=== PATIENT | female | born 1995 | race Caucasian/White ===

== ENCOUNTER → 2021-05-30 | Outpatient (CLI) | payer OTHER | END | disposition home or self-care (01) | LOC: LABWHC1 09:08 | PROVIDERS: ATTEND Physician Assistant Medical | DX: O20.0 Threatened abortion (principal); Z3A.00 Weeks of gestation of pregnancy not specified | CPT/HCPCS: 36415; 84702 ==

== ENCOUNTER → 2021-06-06 | Outpatient (CLI) | payer OTHER | END | disposition home or self-care (01) | LOC: LABWHC1 09:26 | PROVIDERS: ATTEND Obstetrics & Gynecology | DX: O03.9 Complete or unspecified spontaneous abortion without complication (principal) | CPT/HCPCS: 36415; 84702 ==

== ENCOUNTER 2023-04-30 06:00 | Inpatient (IN) | payer OTHER ==
[2023-04-30] MEDS ORDERED: miSOPROStoL 200 MCG TAB PO PRN (06:13)
[2023-04-30] MEDS ORDERED: LIDOCAINE 0.5% (PF) 5 MG/ML (50 ML SDV) SQ PRN (06:13)
[2023-04-30] MEDS ORDERED: TRANEXAMIC 1,000 MG/100ML-NACL 1,000 MG in EMPTY BAG 1 BAG IV PRN (06:13)
[2023-04-30] MEDS ORDERED: CARBOPROST TROMETHAMINE 250 MCG/ML 1 ML AMP IM PRN (06:13)
[2023-04-30] MEDS ORDERED: OXYTOCIN 10 UNIT/ML 1 ML VIAL IM PRN (06:13)
[2023-04-30] MEDS ORDERED: TERBUTALINE 1 MG/ML VIAL SQ PRN (06:13)
[2023-04-30] MEDS: LACTATED RINGERS 1,000 ML IV SCH (06:34)
[2023-04-30] MEDS: OXYTOCIN 30 UNITS/500 ML NS 30 UNIT in SALINE 1 500ML.BAG IV SCH (06:34)
[2023-04-30 06:45] LABS: Basophils % (A) 0 %; Eosinophils # (A) 0.1 k/uL (0-0.7); Eosinophils % (A) 1 %; HCT 32.8 % (34.0-46.0); HGB 11.2 gm/dL (11.4-16.0); Lymphocytes # (A) 2.2 k/uL (1.0-4.8); Lymphocytes % (A) 17 %; MCH 32.6 pg (25.0-35.0); MCHC 34.3 g/dL (31.0-37.0); Mean Platelet Volume 8.4; Monocytes # (A) 0.6 k/uL (0-1.0); Monocytes % (A) 5 %; Neutrophils # (A) 10.1 k/uL (1.3-7.7); Neutrophils % (A) 76 %; Platelet Count 199 k/uL (150-450); RBC 3.45 m/uL (3.80-5.40); RDW 12.4 % (11.5-15.5); WBC 13.3 k/uL (3.8-10.6)
--- NOTE | 2023-04-30 10:16 | P.HPOB ---
History of Present Illness H&P Date: 04/30/23 Chief Complaint: IUP at 39 weeks This is a 28-year-old gravida4 para 2011, EDC of 05/05 based on last menstrual period that presents to labor and delivery for induction of labor, secondary to increasing maternal discomfort. Patient has been receiving routine with myself which has been essentially uncomplicated. This morning patient notes good movement states she was cramping through the night but denied loss of fluid or vaginal bleeding. On blood work this patient has a blood type of a positive, rubella status immune, RPR is nonreactive, hepatitis B surface and is negative, HIV is negative, group beta strep culture is negative. OB history #1, 10/11/2010, 38 weeks, 7 pounds 8 ounces normal spontaneous vaginal delivery #2 10/12 2017, 40 weeks, 7 pounds 9 ounces, normal spontaneous vaginal delivery. # 3 05/19/2021 [facility] Review of Systems Constitutional: Denies chills, Denies fatigue, Denies fever Ears, nose, mouth and throat: Denies headache Cardiovascular: Denies leg edema Respiratory: Denies dyspnea Gastrointestinal: Denies nausea, Denies vomiting Genitourinary: Reports Past Medical History Past Medical History: No Reported History History of Any Multi-Drug Resistant Organisms: None Reported Past Surgical History: No Surgical Hx Reported Past Psychological History: No Psychological Hx Reported Smoking Status: Never smoker Past Alcohol Use History: Occasional Past Drug Use History: None Reported Medications and Allergies Home Medications Medication Instructions Recorded Confirmed Type Vit No.179/Iron/Folic 1 tab PO DAILY 04/30/23 04/30/23 History [ Tablet] Allergies Allergy/AdvReac Type Severity Reaction Status Date / Time No Known Allergies Allergy Verified 04/30/23 06:12 Exam Osteopathic Statement: *. No significant issues noted on an osteopathic structural exam other than those noted in the History and Physical/Consult. Vital Signs Temp Pulse Resp BP Pulse Ox 04/30/23 06:09 97.6 F 96 16 118/76 99 Intake and Output 04/29/23 04/30/23 04/30/23 22:59 06:59 14:59 Other: Weight 72.121 kg Targeted physical exam is performed this date General is a well-nourished well- developed female in no acute distress, breathing is noted be nonlabored, heart has a regular rate and rhythm, abdomen is gravid, on cervical exam she is 2/50/-2 station amniotomy was performed and clear fluid was obtained. heart tones noted to be category 1 and she is tosin irregularly. Results Result Diagrams: 04/30/23 06:30 Abnormal Lab Results - Last 24 Hours (Table) 04/30/23 Range/Units 06:30 WBC 13.3 H (3.8-10.6) k/uL RBC 3.45 L (3.80-5.40) m/uL Hgb 11.2 L (11.4-16.0) gm/dL Hct 32.8 L (34.0-46.0) % Neutrophils # 10.1 H (1.3-7.7) k/uL Assessment and Plan (1) Term Current Visit: Yes Status: Acute Code(s): Z34.90 - ENCNTR FOR SUPRVSN OF NORMAL , UNSP, UNSP TRIMESTER SNOMED Code(s): 72275191 Plan: 28-year-old 4 para 2-0-1-2 at 39 weeks of that presents for induction of labor secondary to maternal discomfort. Patient is admitted to labor and delivery and Pitocin induction of labor has begun. Options for analgesia are discussed including Nubain, nitrous, epidural. Patient will consider. Anticipate spontaneous vaginal delivery
[2023-04-30] MEDS ORDERED: fentaNYL (PF) 50 MCG/ML 5 ML AMP ONE (14:25)
[2023-04-30] MEDS ORDERED: SODIUM CHLORIDE 0.9% 250 ML BAG ONE (14:25)
[2023-04-30] MEDS ORDERED: ROPIVACAINE 5 MG/ML 30 ML VIAL ONE (14:25)
[2023-04-30] MEDS: METHYLERGONOVINE 0.2 MG/ML 1 ML AMP IM PRN (20:14)
[2023-04-30] MEDS ORDERED: HYDROCORTISONE 2.5% RECTAL CREAM 30 GM TUBE RECTAL PRN (20:19)
[2023-04-30] MEDS ORDERED: LANOLIN CREAM 1 GM TUBE TOPICAL PRN (20:19)
[2023-04-30] MEDS ORDERED: ZOLPIDEM 5 MG TAB PO PRN (20:19)
[2023-04-30] MEDS ORDERED: diphenhydrAMINE 25 MG CAP PO PRN (20:19)
[2023-04-30] MEDS ORDERED: diphenhydrAMINE 50 MG CAP PO PRN (20:19)
[2023-04-30] MEDS ORDERED: BENZOCAINE/MENTHOL SPRAY 1 GM/SPRAY AEROSOL TOPICAL PRN (20:19)
[2023-04-30] MEDS ORDERED: SIMETHICONE 80 MG CHEWABLE PO PRN (20:19)
[2023-04-30] MEDS ORDERED: diphenhydrAMINE 50 MG/ML 1 ML VIAL IVP PRN ×2 (20:19)
--- NOTE | 2023-04-30 20:22 | P.PROBDLV ---
Vaginal Delivery Note - . Vaginal Delivery Note: Findings: Viable female delivered at 2003, weight of 6 pounds 15.1 ounces. 28-year-old 4 para 2-0-1-2 at 39-1/7 weeks, estimated due date of 05/05 presents to labor and delivery for scheduled induction of labor. Patient has been receiving routine care which has been essentially uncomplicated. Over the last few weeks patient has noted increasing maternal discomfort and requested induction of labor. Patient was admitted and Pitocin induction of labor was begun. Patient underwent amniotomy and clear fluid was obtained. Patient progressed through labor eventually becoming uncomfortable and requesting epidural placement. Epidural was placed without difficulty with anesthesia department. Patient made good progress toward complete dilation. Once completely dilated she began pushing and had a normal spontaneous vaginal delivery of a viable female at 2003, weight of 6 pounds 15.1 ounces, Apgars of 9 and 9 at 1 and 5 minutes respectively. After 2-minute delay the umbilical was doubly clamped and cut. The placenta was delivered spontaneously intact with a three-vessel cord being noted. Uterus was noted to be boggy and a large gush of blood was noted therefore Methergine was given IM. The uterus firmed with fundal massage. On inspection of the patient's vaginal vault and the lacerations were appreciated. All counts were to be correct x 2 at the end of the delivery. Patient and tolerated delivery well and are resting comfortably.
[2023-04-30] MEDS: IBUPROFEN 600 MG TAB PO SCH (21:48)
[2023-05-01 04:48] VITALS: RESP 16
[2023-05-01] MEDS: SENNOSIDES-DOCUSATE SODIUM 1 EACH TAB PO SCH (08:29)
--- NOTE | 2023-05-01 08:54 | P.DS ---
Providers Date of admission: 04/30/23 06:05 Expected date of discharge: 05/01/23 Attending physician: Chani Zaidi Primary care physician: Susan Herman - Discharge Diagnosis(es) (1) Term Current Visit: Yes Status: Acute (2) Status post vaginal delivery Current Visit: Yes Status: Acute Hospital Course: 28-year-old 4 now para 3-0-1-3 that presented to labor and delivery yesterday for scheduled induction of labor. Patient had been receiving routine care which was essentially uncomplicated. Patient was admitted to labor and delivery and Pitocin induction of labor was begun. Amniotomy was performed and clear fluid was obtained. Agent progressed through labor eventually becoming uncomfortable and requesting epidural placement. Epidural was placed without difficulty. Patient began pushing and had normal spontaneous vaginal delivery of a viable female infant, weight of 6 pounds 15.1 ounces. Patient did receive Methergine x 1 for a large gush of blood that was noted after delivery. Normal bleeding was appreciated through the night. Patient's course has been uneventful. In this day 1 she is ambulating and voiding without difficulty. She is tolerating a regular diet without nausea or vomiting. She states her pain is well-controlled with oral pain medication. Patient does desire discharge home later today. Patient Condition at Discharge: Good Plan - Discharge Summary New Discharge Prescriptions: No Action Vit No.179/Iron/Folic [ Tablet] 1 tab PO DAILY Discharge Medication List Vit No.179/Iron/Folic [ Tablet] 1 tab PO DAILY 04/30/23 [History] Follow up Appointment(s)/Referral(s): Chani Zaidi DO [Doctor of Osteopathic Medicine] - 6 Weeks Patient Instructions/Handouts: Vaginal Delivery (DC), Vaginal Delivery (GEN) Activity/Diet/Wound Care/Special Instructions: No intercourse, tampons or douching. No heavy lifting greater than a gallon of milk. No driving for two weeks. Call with any fever, shakes or chills, with any pain not alleviated by over the counter meds, or with any quesions or concerns. Discharge Disposition: HOME SELF-CARE
[2023-05-01] MEDS: ACETAMINOPHEN TAB 325 MG TAB PO PRN (15:25)
[2023-05-01 17:25] VITALS: BP 114/76; PULSE 68; TEMP 98.2
== END 2023-05-01 21:39 | disposition home or self-care (01) | DRG 807 ==
LOC: 4FBP 06:05
PROVIDERS: ADMIT Obstetrics & Gynecology Obstetrics; ATTEND Obstetrics & Gynecology Obstetrics
PROC: 10E0XZZ Delivery of Products of Conception, External Approach (ICD-10-PCS; principal; 2023-04-30)
PROC: 10907ZC Drainage of Amniotic Fluid, Therapeutic from Products of Conception, Via Natural or Artificial Opening (ICD-10-PCS; principal; 2023-04-30)
PROC: 3E033VJ Introduction of Other Hormone into Peripheral Vein, Percutaneous Approach (ICD-10-PCS; principal; 2023-04-30)
DX: O80 Encounter for full-term uncomplicated delivery (principal); Z37.0 Single live birth; Z3A.39 39 weeks gestation of pregnancy; Z28.310 Unvaccinated for COVID-19; Z28.21 Immunization not carried out because of patient refusal
CPT/HCPCS: 85025; 86850; 86900; 86901

== ENCOUNTER 2024-09-01 09:20 | Emergency (ER) | payer OTHER ==
[2024-09-01 09:28] VITALS: RESP 18; TEMP 98
[2024-09-01 09:55] LABS: Basophils # (A) 0.05 10*3/uL (0.00-0.10); Basophils % (A) 0.3 %; Eosinophils # (A) 0.07 10*3/uL (0.04-0.35); Eosinophils % (A) 0.5 %; HCT 40.4 % (37.2-46.3); HGB 14.3 g/dL (12.0-15.0); Lymphocytes # (A) 1.54 10*3/uL (0.90-5.00); Lymphocytes % (A) 10.1 %; MCH 32.6 pg (27.0-32.0); MCHC 35.4 g/dL (32.0-37.0); MCV 92.2 fL (80.0-97.0); Monocytes # (A) 1.04 10*3/uL (0.20-1.00); Monocytes % (A) 6.8 %; Neutrophils # (A) 12.43 10*3/uL (1.80-7.70); Neutrophils % (A) 81.9 %; Platelet Count 266 10*3/uL (140-440); RBC 4.38 10*6/uL (4.10-5.20); RDW 11.8 % (11.5-14.5); WBC 15.19 10*3/uL (4.50-10.00)
[2024-09-01 10:04] LABS: ALT 15 U/L (4-34); AST 24 U/L (14-36); African American GFR (CKD) >90 (>60 ml/min/1.73 sqM); Albumin 4.7 g/dL (3.5-5.0); Alkaline Phosphatase 109 U/L (38-126); Anion Gap 13 mmol/L; Blood Urea Nitrogen 3 mg/dL (7-17); Calcium 9.6 mg/dL (8.4-10.2); Carbon Dioxide 20 mmol/L (22-30); Chloride 104 mmol/L (98-107); Glucose 107 mg/dL (74-99); Non-African American GFR(CKD) >90 (>60 ml/min/1.73 sqM); Potassium 4.2 mmol/L (3.5-5.1); Sodium 137 mmol/L (137-145); Total Protein 8.0 g/dL (6.3-8.2)
[2024-09-01] MEDS: ONDANSETRON 4 MG/2 ML VIAL IVP STA (10:08)
[2024-09-01] MEDS: ACETAMINOPHEN IV (For NPO) 1,000 MG in EMPTY BAG 1 BAG IVPB STA (10:09)
[2024-09-01] MEDS: SODIUM CHLORIDE 0.9% 1,000 ML IV SCH (10:09)
[2024-09-01 10:48] LABS: HCG,Quantitative Serum 15238.8 mIU/mL
--- NOTE | 2024-09-01 11:30 | US ---
EXAMINATION TYPE: US kidneys/renal and bladder DATE OF EXAM: 09/01/2024 COMPARISON: NONE CLINICAL INDICATION: Female, 29 years old with history of right flank pain; right flank pain since 13 0am, when she wipes there is pink coloring, unsure if from vagina versus urethra TECHNIQUE: Grayscale imaging of the bilateral kidneys and urinary bladder: FINDINGS: EXAM MEASUREMENTS: Right Kidney: 10.7 x 4.6 x 4.3 cm Left Kidney: 10.6 x 3.4 x 4.4 cm Right Kidney: No hydronephrosis or masses seen Left Kidney: No hydronephrosis or masses seen Bladder: Partially distended bladder shows no gross abnormality. IMPRESSION: No hydronephrosis or other discrete sonographic abnormalities seen. [facility], Workstation: [id number], 09/01/2024 11:27 AM
--- NOTE | 2024-09-01 12:01 | US ---
EXAMINATION TYPE: Transabdominal DATE OF EXAM: 09/01/2024 11:34 AM COMPARISON: NONE CLINICAL INDICATION: Female, 29 years old with history of pain; pain TECHNIQUE: Transvaginal (TV) and Transabdominal (TA) with grayscale and color Doppler imaging includi ng first trimester . FINDINGS: EXAM MEASUREMENTS: GESTATIONAL AGE / DATING Physician Established: Not yet established Dates by LMP: LMP unknown Dates by First Scan: No previous this is first scan Dates by Current Scan for: Unable to date by today's study MATERNAL ANATOMY Uterus: 9.0 x 4.6 x 6.4 cm there are tiny cervical nabothian cysts noted. Right Ovary: 3.6 x 1.7 x 2.1 cm Left Ovary: 2.4 x 1.1 x 1.5 cm Post CDS / Adnexa: wnl Presence of free fluid: no Presence of corpus luteal cyst: no Presence of subchorionic bleed: no GESTATION / SURVEY CRL: not seen on today's exam Gestational Sac MSD: 0.87 cm Yolk Sac (normal less than 6mm): 3mm IUP: No pole seen at this time Beta HcG (if available): 16202.8 Gestational and yolk sac visualized. No pole seen at this time. IMPRESSION: Single intrauterine . Gestational sac size of 8.7 mm is out of range to determine gestationa l age. Correlate with LMP. As no pole is seen at this time, appropriate follow-up with serial b eta-hCG and ultrasound to ensure the appearance of a normal, viable pole with cardiac activity. [facility], , 09/01/2024 11:59 AM
[2024-09-01 12:32] LABS: Bacteria,Urine Rare /hpf; Bilirubin,Urine Negative (Negative); Blood,Urine Moderate (Negative); Color,Urine Light Yellow; Glucose,Urine (UA) Negative (Negative); Ketones,Urine Trace (Negative); Leukocyte Esterase,Urine Moderate (Negative); Nitrite,Urine Negative (Negative); PH, Urine 6.5 (5.0-8.0); Protein,Urine Negative (Negative); Specific Gravity,Urine 1.002 (1.001-1.035); Urobilinogen,Urine <2.0 mg/dL (<2.0); WBC,Urine 29 /hpf (0-5)
--- NOTE | 2024-09-01 12:37 | ED ---
Abdominal Pain HPI - General Chief Complaint: Abdominal Pain Stated Complaint: Abd pain(preg not sure how far along) Time Seen by Provider: 09/01/24 09:28 Source: patient, RN notes reviewed Mode of arrival: ambulatory Limitations: no limitations - History of Present Illness Initial Comments: 29-year-old female presents emergency department with chief complaint of abdominal pain. Patient states started around 1 AM. Patient states in the lower abdomen but also has right flank pain. Patient denies any reports of fever and has been slight nausea without vomiting states that she is currently she is G4 which she believes she is approximately 5 weeks . Patient states that she sees Dr. Zaidi. She has not prior abdominal surgeries. Patient states she just feels pressure in her lower abdomen - Related Data Home Medications Medication Instructions Recorded Confirmed Vit No.179/Iron/Folic 1 tab PO DAILY 04/30/23 04/30/23 [ Tablet] Allergies Allergy/AdvReac Type Severity Reaction Status Date / Time No Known Allergies Allergy Verified 09/01/24 09:28 Review of Systems ROS Statement: Those systems with pertinent positive or pertinent negative responses have been documented in the HPI. ROS Other: All systems not noted in ROS Statement are negative. Past Medical History Past Medical History: No Reported History History of Any Multi-Drug Resistant Organisms: None Reported Past Surgical History: No Surgical Hx Reported Past Psychological History: No Psychological Hx Reported Smoking Status: Never smoker Past Alcohol Use History: Occasional Past Drug Use History: None Reported General Exam Limitations: no limitations General appearance: alert, in no apparent distress Head exam: Present: atraumatic, normocephalic, normal inspection Eye exam: Present: normal appearance, PERRL, EOMI. Absent: scleral icterus, conjunctival injection, periorbital swelling ENT exam: Present: normal exam, normal oropharynx, mucous membranes moist Neck exam: Present: normal inspection, full ROM. Absent: tenderness, meningis mus, lymphadenopathy Respiratory exam: Present: normal lung sounds bilaterally. Absent: respiratory distress, wheezes, rales, rhonchi, stridor Cardiovascular Exam: Present: regular rate, normal rhythm, normal heart sounds. Absent: systolic murmur, diastolic murmur, rubs, gallop, clicks GI/Abdominal exam: Present: soft, tenderness, normal bowel sounds. Absent: distended, guarding, rebound, rigid Back exam: Absent: CVA tenderness (R), CVA tenderness (L) Neurological exam: Present: alert, oriented X3 Course Vital Signs 09/01/24 09/01/24 09/01/24 09:26 12:25 13:19 Temperature 98 F Pulse Rate 101 H 73 75 Respiratory 18 18 18 Rate Blood Pressure 145/101 116/65 114/77 O2 Sat by Pulse 99 99 98 Oximetry Medical Decision Making - Medical Decision Making Was pt. sent in by a medical professional or institution (, [facility], PRINTS AND DRAWINGS CURATOR, urgent care, hospital, or long-term...) When possible be specific @ -No Did you speak to anyone other than the patient for history (EMS, parent, family, police, friend...)? What history was obtained from this source @ -No Did you review nursing and triage notes (agree or disagree)? Why? @ -I reviewed and agree with nursing and triage notes Were old charts reviewed (outside hosp., previous admission, EMS record, old EKG, old radiological studies, urgent care reports/EKG's, long-term records)? Report findings @ -No old charts were reviewed Differential Diagnosis (chest pain, altered mental status, abdominal pain women, abdominal pain men, vaginal bleeding, weakness, fever, dyspnea, syncope, headache, dizziness, GI bleed, back pain, seizure, CVA, palpatations, mental health, musculoskeletal)? @ -Differential Vaginal Bleeding: Spontaneous , threatened , molar , ectopic , bloody show, incompetent cervix, abruptioplacenta, placenta previa, uterine rupture, dysfunctional uterine bleeding, hemorrhage, uterine fibroids, this is not meant to be an all-inclusive list. EKG interpreted by me (3pts min.). @ -[None X-rays interpreted by me (1pt min.). @ -None done CT interpreted by me (1pt min.). @ -None done U/S interpreted by me (1pt. min.). @ -Ultrasound pelvic showing small gestational sac no other acute process. Ultrasound kidneys no acute evidence of nephrolithiasis, hydronephrosis What testing was considered but not performed or refused? (CT, X-rays, U/S, labs)? Why? @ -None What meds were considered but not given or refused? Why? @ -None Did you discuss the management of the patient with other professionals (professionals i.e. , PA, PRINTS AND DRAWINGS CURATOR, lab, RT, psych nurse, social science instructor, manager tax, teacher, business banking officer, piano case maker)? Give summary @ -No Was smoking cessation discussed for >3mins.? @ -No Was critical care preformed (if so, how long)? @ -No Were there social determinants of health that impacted care today? How? (Homelessness, low income, unemployed, alcoholism, drug addiction, transportation, low edu. Level, literacy, decrease access to med. care, senior care, rehab)? @ -No Was there de-escalation of care discussed even if they declined (Discuss DNR or withdrawal of care, Hospice)? DNR status @ -No What co-morbidities impacted this encounter? (DM, HTN, Smoking, COPD, CAD, Cancer, CVA, ARF, Chemo, Hep., AIDS, mental health diagnosis, sleep apnea, morbid obesity)? @ -None Was patient admitted / discharged? Hospital course, mention meds given and route, prescriptions, significant lab abnormalities, going to OR and other pertinent info. @ -[Discharge patient has a positive blood type. Patient has threatened miscarriage patient will have repeat hCG return parameters jerrod. Undiagnosed new problem with uncertain prognosis? @ -No Drug Therapy requiring intensive monitoring for toxicity (Heparin, Nitro, Insulin, Cardizem)? @ -No Were any procedures done? @ -No Diagnosis/symptom? @Threatened miscarriage Acute, or Chronic, or Acute on Chronic? @ -Acute Uncomplicated (without systemic symptoms) or Complicated (systemic symptoms)? @ -Uncomplicated Side effects of treatment? @ -No Exacerbation, Progression, or Severe Exacerbation? @ -No Poses a threat to life or bodily function? How? (Chest pain, [place], [place], pneumonia, PE, COPD, DKA, ARF, appy, cholecystitis, CVA, Diverticulitis, Homicidal, Suicidal, threat to staff... and all critical care pts) @ -No - Lab Data Result diagrams: 09/01/24 09:45 09/01/24 09:45 Lab Results 09/01/24 09/01/24 09/01/24 Range/Units 09:45 09:45 12:25 WBC 15.19 H (4.50-10.00) 10*3/uL RBC 4.38 (4.10-5.20) 10*6/uL Hgb 14.3 (12.0-15.0) g/dL Hct 40.4 (37.2-46.3) % MCV 92.2 (80.0-97.0) fL MCH 32.6 H (27.0-32.0) pg MCHC 35.4 (32.0-37.0) g/dL Plt Count 266 (140-440) 10*3/uL MPV 10.0 (9.5-12.2) fL Immature Gran % (Auto) 0.4 % Neutrophils % 81.9 % Lymphocytes % 10.1 % Monocytes % 6.8 % Eosinophils % 0.5 % Basophils % 0.3 % Immature Gran # 0.06 H (0.00-0.04) 10*3/uL Neutrophils # 12.43 H (1.80-7.70) 10*3/uL Lymphocytes # 1.54 (0.90-5.00) 10*3/uL Monocytes # 1.04 H (0.20-1.00) 10*3/uL Eosinophils # 0.07 (0.04-0.35) 10*3/uL Basophils # 0.05 (0.00-0.10) 10*3/uL Sodium 137 (137-145) mmol/L Potassium 4.2 (3.5-5.1) mmol/L Chloride 104 (98-107) mmol/L Carbon Dioxide 20 L (22-30) mmol/L Anion Gap 13 mmol/L BUN 3 L (7-17) mg/dL Creatinine 0.61 (0.52-1.04) mg/dL Est GFR (CKD-EPI)AfAm >90 (>60 ml/min/1.73 sqM) Est GFR (CKD-EPI)NonAf >90 (>60 ml/min/1.73 sqM) Glucose 107 H (74-99) mg/dL Calcium 9.6 (8.4-10.2) mg/dL Total Bilirubin 1.1 (0.2-1.3) mg/dL AST 24 (14-36) U/L ALT 15 (4-34) U/L Alkaline Phosphatase 109 (38-126) U/L Total Protein 8.0 (6.3-8.2) g/dL Albumin 4.7 (3.5-5.0) g/dL HCG, Quant 07766.8 mIU/mL Urine Color Light Yellow Urine Appearance Clear (Clear) Urine pH 6.5 (5.0-8.0) Ur Specific [place] 1.002 (1.001-1.035) Urine Protein Negative (Negative) Urine Glucose (UA) Negative (Negative) Urine Ketones Trace H (Negative) Urine Blood Moderate H (Negative) Urine Nitrite Negative (Negative) Urine Bilirubin Negative (Negative) Urine Urobilinogen <2.0 (<2.0) mg/dL Ur Leukocyte Esterase Moderate H (Negative) Urine WBC 29 H (0-5) /hpf Urine Bacteria Rare H (None) /hpf Disposition Clinical Impression: Threatened miscarriage Disposition: HOME SELF-CARE Condition: Stable Instructions (If sedation given, give patient instructions): Threatened Miscarriage (ED) Additional Instructions: Please return to the Emergency Department if symptoms worsen or any other concerns. Is patient prescribed a controlled substance at d/c from ED?: No Referrals: Susan Herman MD [Primary Care Provider] - 1-2 days Chani Zaidi DO [Doctor of Osteopathic Medicine] - 1-2 days Time of Disposition: 13:01
[2024-09-01] MEDS: MORPHINE SULFATE 4 MG/ML SYRINGE IVP STA (13:04)
[2024-09-01 13:20] VITALS: BP 114/77; PULSE 75
== END 2024-09-01 13:20 | disposition home or self-care (01) ==
LOC: EC 09:20
DX: O20.0 Threatened abortion (principal); Z3A.01 Less than 8 weeks gestation of pregnancy
CPT/HCPCS: 36415; 80053; 85025; 81001; 84702; 87086; 76801; 76817; 76770; 99284; 96365; 96375; 96361; J2270; J2405; J0131

== ENCOUNTER → 2024-09-03 | Outpatient (CLI) | payer OTHER | END | disposition home or self-care (01) | LOC: LABWHC1 12:52 | PROVIDERS: ATTEND Physician Assistant | DX: O20.0 Threatened abortion (principal); Z3A.00 Weeks of gestation of pregnancy not specified | CPT/HCPCS: 36415; 84702 ==

== ENCOUNTER → 2024-09-18 | Outpatient (CLI) | payer OTHER ==
[2024-09-18 15:24] LABS: Basophils # (A) 0.04 X 10*3/uL (0.00-0.10); Basophils % (A) 0.5 %; Eosinophils # (A) 0.10 X 10*3/uL (0.04-0.35); Eosinophils % (A) 1.2 %; HCT 40.1 % (37.2-46.3); HGB 13.6 g/dL (12.0-15.0); Immature Grans, Automated 0.30 %; Lymphocytes # (A) 2.01 X 10*3/uL (0.90-5.00); Lymphocytes % (A) 23.3 %; MCH 31.3 pg (27.0-32.0); MCHC 33.9 g/dL (32.0-37.0); MCV 92.4 FL (80.0-97.0); Monocytes # (A) 0.50 X 10*3/uL (0.20-1.00); Monocytes % (A) 5.8 %; NRBC Per 100 WBC 0 X 10*3/uL (0.00-0.01); Neutrophils # (A) 5.94 X 10*3/uL (1.80-7.70); Neutrophils % (A) 68.9 %; Platelet Count 275 X 10*3/uL (140-440); RBC 4.34 X 10*6/uL (4.10-5.20); RDW 11.6 % (11.5-14.5); WBC 8.62 X 10*3/uL (4.50-10.00)
== END | disposition home or self-care (01) ==
LOC: LABWHC1 09:39
PROVIDERS: ATTEND Obstetrics & Gynecology Obstetrics
DX: Z01.812 Encounter for preprocedural laboratory examination (principal); O02.0 Blighted ovum and nonhydatidiform mole
CPT/HCPCS: 85025; 86850; 86900; 86901